=== PATIENT | male | born 1935 | race Caucasian/White ===

== ENCOUNTER 2016-11-14 20:28 | Inpatient (IN) | payer OTHER ==
[~2016-11-14] VITALS: Ht 180.3 cm; Wt 103.0 kg
--- NOTE | ~2016-11-14 | 2DMMODE ---
[facility] [address] [place] [address] 2 D/M-MODE ECHOCARDIOGRAM Name: ANA COOL Room #: 314-P [facility] IN ..#: [id number] Admission: 11/15/16 Attend Phys: Jones Lema Discharge: Date of : 33 Date of Service: 11/15/16 1145 Report #: [id number] THIS REPORT FOR: //name// APPROVED REPORT Study performed: 11/15/2016 10:22:10 EXAM: Comprehensive 2D, Doppler, and color-flow Echocardiogram Patient Location: Bedside Blood Pressure: 137/83 mmHg HR: 75 bpm Other Information Study Quality: Adequate Indications Diabetes CAD Hypertension/HDD 2D Dimensions RVDd: 35.63 mm LVEF(%): 65.08 (>50%) IVSd: 13.40 (7-11mm) LVOT Diam: 23.81 (18-24mm) LVDd: 49.13 mm PWd: 12.51 (7-11mm) Ascending Aorta: 32.53 mm LVDs: 31.57 (25-40mm) Aortic Root: 36.94 mm Tellez's LVEF: 65.08 % Volumes Left Atrial Volume (Systole) Single Plane 4CH: 59.72 mL Single Plane 2CH: 59.55 mL Aortic Valve AoV Peak Andrey.: 1.27 m/s AO Peak Gr.: 6.44 mmHg LV Max P.26 mmHg LV Max: 1.03 m/s Mitral Valve MV PHT: 75.39 ms MV E Max Andrey.: 1.17 m/s E/A Ratio: 0.9 [facility] [address] [place] [address] 2 D/M-MODE ECHOCARDIOGRAM Name: ANA COOL Room #: 314-P [facility] IN ..#: [id number] Admission: 11/15/16 Attend Phys: Jones Lema Discharge: Date of : 33 Date of Service: 11/15/16 1145 Report #: [id number] A Anrdey.: 1.30 m/s MV Decel. Time: 259.98 ms Pulmonary Valve PV Peak Andrey.: 1.04 m/s PV Peak Gr.: 4.31 mmHg Tricuspid Valve TR Peak Andrey.: 3.05 m/s TR Peak Gr.: 37.30 mmHg Left Ventricle The left ventricle is normal size. There is normal LV segmental wall motion. Mild concentric left ventricular hypertrophy. The left ventricular systolic function is normal. The left ventricular ejection fraction is within the normal range. LVEF is 60-65%. Left ventricular filling pattern is normal for age. Right Ventricle The right ventricle is normal size. The right ventricular systolic function is normal. Atria The left atrium size is normal. Right atrium is mildly dilated. Aortic Valve The aortic valve is normal in structure. No aortic regurgitation is present. There is no aortic valvular stenosis. Mitral Valve The mitral valve is normal in structure. Moderate mitral regurgitation. Tricuspid Valve The tricuspid valve is normal in structure. There is mild tricuspid regurgitation. There is mild pulmonary hypertension. The estimated PAP was 37 mmHg plus the right atrial pressure. Pulmonic Valve The pulmonary valve is normal in structure. There is no pulmonic valvular regurgitation. Great Vessels The aortic root is normal in size. IVC is not well visualized. Pericardium [facility] [place] [address] 2 D/M-MODE ECHOCARDIOGRAM Name: ANA COOL Room #: 314-P ADM IN M.R.#: [id number] Admission: 11/15/16 Attend Phys: Jones Lema Discharge: Date of : 33 Date of Service: 11/15/16 1145 Report #: [id number] There is no pericardial effusion. <Conclusion> The left ventricle is normal size. LVEF is 60-65%. Right atrium is mildly dilated. The aortic valve is normal in structure. The mitral valve is normal in structure. Moderate mitral regurgitation. There is mild tricuspid regurgitation. There is mild pulmonary hypertension. The estimated PAP was 37 mmHg plus the right atrial pressure. <ELECTRONICALLY SIGNED> By: Fabricio Hammer MD 11/15/16 1145 1145 1145 Fabricio Hammer MD /INF
--- NOTE | ~2016-11-14 | EKG ---
[address] [place] [address] ELECTROCARDIOGRAM REPORT Name: ANA Woodward Room #: 314-P [facility] M.R.#: [id number] Admission: 11/14/16 Attend Phys: Jones Ricketts Discharge: Date of : 33 Report #: [id number] THIS REPORT FOR: //name// [facility] ED Test Date: 2016-11-14 Test Time: 20:47:45 Pat Name: ANA COOL Department: Room: [facility] Gender: M Hat Steamer: CHRIS : 1935 Requested By: Laura Chua Order Number: [id number] MD: Valdemar Momin Measurements Intervals [place] Rate: 104 P: NV: QRS: -78 QRSD: 106 T: 88 QT: 341 QTc: 449 Interpretive Statements Atrial fibrillation Abnormal R-wave progression, early transition Inferior infarct, old Nonspecific ST and T wave abnormality No previous ECG available for comparison Electronically Signed On 11-15-2016 9:36:53 CDT by Valdemar Momin [email or web address] <ELECTRONICALLY SIGNED> By: Valdemar Momin MD, [facility] 11/15/16 0936 2047 46 Valdemar Momin MD, FACC /EPI
--- NOTE | ~2016-11-14 | H ---
[facility] [place] [address] HISTORY AND PHYSICAL Name: ANA COOL Room #: 314-P ADM IN M.R.#: [id number] Admission: 11/15/16 Attend Phys: Jones Ricketts Discharge: Date of : 33 Report #: [id number] THIS REPORT FOR: //name// CC: FAM unknown Jones Ricketts DATE OF SERVICE: 11/14/2016 ATTENDING PHYSICIAN: Dr. Randy Pina. PRIMARY CARE PHYSICIAN: Is in [place]. CHIEF COMPLAINT: Fatigued and back pain. HISTORY OF PRESENT ILLNESS: The patient is an 81-year-old male who has been living in [place] for many years. Apparently, his ex- has been here [place] with disease and just yesterday. He has scheduled for her today. He just kate here with his son, he says they kate straight through up to 19 hours and he never really got out to stretch at his legs. He does have a history of DVT but is not on any further anticoagulation. Overall he is feeling very fatigued and experiencing some back pain. He also had diminished appetite, but denied any nausea or vomiting. He had a fever today up to 101.7 and he was brought into the ER to be evaluated. He has been having some associated chills. In the ER, he was diagnosed with pneumonia and admitted for IV antibiotics. The patient is adamant that he gets out today and time to get to his ex-'s . He is denying any cough or congestion. Denies any ill contacts. PAST MEDICAL HISTORY: Hypertension, CVA, coronary artery disease, noninsulin dependent diabetes, obstructive sleep apnea, seizure disorder, chronic back pain, DVT, chronic kidney disease stage 3, gastritis with prior GI bleed, peripheral neuropathy. PAST SURGICAL HISTORY: Right knee and left knee scopes followed by a left total knee replacement, CABG x 3 vessels in 2002, and coronary stent. ALLERGIES: PENICILLIN, unknown reaction. HOME MEDICATIONS: The patient states he takes multiple medications including blood pressure medicines, seizure medicine, but he does not have this medications on him or have an accurate list. SOCIAL HISTORY: The patient currently lives in [place]. His ex- had been living [place] years and has just . He normally ambulates with a cane. Denies any alcohol or tobacco use. [address] [address] HISTORY AND PHYSICAL Name: ANA Crissy Room #: 314-P [facility] IN M.R.#: [id number] Admission: 11/15/16 Attend Phys: Jones iRcketts Discharge: Date of : 33 Report #: [id number] FAMILY HISTORY: Noncontributory due to advanced age. REVIEW OF SYSTEMS: Twelve point review of systems was reviewed with the patient, otherwise negative unless stated in the HPI. PHYSICAL EXAMINATION: GENERAL: The patient is an alert male in no acute distress. VITAL SIGNS: Temperature is 38.7, heart rate 99, respirations 22, blood pressure is 191/71, oxygen 97% on room air. HEENT: PERRLA. Sclerae are nonicteric. Oral mucosa is pink and dry. Lips are chapped. NECK: Supple, no JVD noted. CARDIOVASCULAR: Normal S1, S2. No murmurs, rubs or gallops. RESPIRATORY: Breath sounds are clear bilaterally. He is diminished in the right lower lobe. Breathing is nonlabored. ABDOMEN: Round, soft, nontender, nondistended with positive bowel sounds. VASCULAR: He does have 1+ edema bilateral lower extremities. There is some venous stasis discoloration of both lower extremities. There is some mild erythema and warmth circumferentially above both ankles this area is somewhat tender. He really does not have any calf tenderness, pedal pulses are 1+. Feet are warm. NEUROLOGIC: The patient is alert and oriented x 3. Speech is clear. He is answering answers questions appropriately and is following commands. No focal weakness noted. LABORATORY DATA AND DIAGNOSTIC: WBC is 30.3, hemoglobin is 12.5, platelets 240. Sodium is 136, potassium 3.8, BUN 44, creatinine 1.8, glucose 230. Liver enzymes are within normal limits. Troponin is negative. BNP 2144. UA showed trace blood, otherwise negative. Chest x-ray showed a left lower lobe infiltrate with small left pleural effusions and cardiomegaly with mild vascular congestion. ASSESSMENT AND PLAN: 1. Pneumonia. This will be considered community acquired. We will continue with Levaquin because he does have significant leukocytosis. We will add vancomycin, follow blood cultures, check urine for Legionella and Strep. Add breathing treatments and mucolytics. 2. Bilateral lower extremity cellulitis. Follow blood cultures. Continue with vancomycin. We will check venous Doppler's to rule out DVT as he does have a history of DVT and has had a recent travel. 3. Diabetes type 2. Blood sugar is elevated. We will add sliding scale insulin and check blood sugars a.c. and h.s., we do need to clarify his home oral hypoglycemics, he said he is not on any insulin at home. 4. Hypertension. Blood pressure is elevated. We will try to clarify his home medications and resume. 5. History of coronary artery disease. The patient denies any current chest [facility] [address] [place] [address] HISTORY AND PHYSICAL Name: ANA COOL Room #: 314-P ADM IN .R.#: [id number] Admission: 11/15/16 Attend Phys: Jones Ricketts Discharge: Date of : 33 Report #: [id number] pain and EKG shows no ischemic changes. 6. Seizure disorder. He was able to tell us that he is on Dilantin which we will continue. 7. Chronic kidney disease stage III?. We do not have any previous labs, but the patient does believe he has had some kidney problems in the past. So, we really do not know the baseline creatinine. He is receiving IV fluids and we will follow labs. 8. Deep venous thrombosis prophylaxis, start Lovenox. We will continue to follow the patient closely throughout the hospitalization and make changes based on clinical status. <ELECTRONICALLY SIGNED> By: SADIE Amaral 11/19/16 0608 0704 09 SADIE Amaral /angela
--- NOTE | ~2016-11-14 | HC ---
[facility] [place] [address] CONSULTATION Name: ANA COOL Room #: 314-P [facility] IN M.R.#: [id number] Admission: 11/15/16 Attend Phys: Jones Ricketts Discharge: Date of : 33 Report #: [id number] THIS REPORT FOR: //name// CC: FAM unknown Jones Ricketts REASON FOR CONSULTATION: Elevated troponin. HISTORY OF PRESENT ILLNESS: The patient is an 81-year-old gentleman who lives in [place], [place]. He is here following his 's and . He has been here about a week. Last , he developed generalized fatigue and chills. He presented to the emergency department last night with decreased appetite, malaise and nonproductive cough. He was seen in the emergency department where he was febrile at 38.7 degrees. Hemodynamics were stable. In this setting, a troponin was ordered and elevated at 1.75. I was asked to see him in this regard. He denies chest heaviness, pressure or ischemic type symptoms. He says that, maybe under really heavy levels of physical exertion, he develops a midsternal chest tightness that is relieved by rest. He is followed very closely by a pump house engineer in [place] who performed a nuclear stress study, he thinks, about a year ago and was told that everything was "okay." He denies a prior history of myocardial infarction. He denies heart failure symptoms including orthopnea, paroxysmal nocturnal dyspnea or lower extremity edema. No history of palpitations, near syncope or syncope. MEDICINES: He does not have a list with him, include Topamax and Dilantin. ALLERGIES: PENICILLIN. PAST MEDICAL HISTORY: Notable for hypertension, prior stroke in 2000, angioplasty to the LAD in 1992 followed by multivessel bypass surgery by Dr. Ana Vera in 07/2002, bilateral knee replacements, chronic low back pain, sleep apnea on CPAP, diabetes. SOCIAL HISTORY: He is a nonsmoker, retired salesman. FAMILY HISTORY: Unremarkable for premature coronary disease. REVIEW OF SYSTEMS: All systems negative except as that noted above. PHYSICAL EXAMINATION: GENERAL: He is a pleasant gentleman in no distress. VITAL SIGNS: Blood pressure is 150/60, heart rate of 70 and regular, temperature is 100.1 degrees, 5 feet 11 inches tall, 227 pounds. HEENT: There is neither xanthelasma, subcutaneous xanthomata, oral mucosal or digital cyanosis or kyphoscoliosis present. CHEST: Reveals diminished breath sounds at both bases. CARDIAC: Reveals regular rate and rhythm with normal S1, S2. No murmurs or [facility] [address] [place] [address] CONSULTATION Name: ANA COOL Room #: 314-P [facility] IN M.R.#: [id number] Admission: 11/15/16 Attend Phys: Jones Ricketts Discharge: Date of : 34 Report #: [id number] rubs. Jugular venous pressure is not elevated. ABDOMEN: Soft and nontender. EXTREMITIES: With trace edema. Radial pulses are 2+. NEUROLOGIC: He is alert with a nonfocal exam. LABORATORY DATA: EKG: Sinus rhythm with early R-wave progression, probable prior inferior infarct. Sodium 140, potassium 3.4, creatinine 1.7. Troponin 1.75, BNP 9359. White count 15.7, hemoglobin 10, hematocrit 31, platelet count 200, normal thyroid function studies. Venous Dopplers were negative for deep venous thrombosis. RADIOLOGICAL DATA: Chest x-ray demonstrates left lower lobe infiltrate, mild pulmonary vascular redistribution. IMPRESSION: 1. Community-acquired pneumonia. 2. Non-Q-wave myocardial infarction, likely related to supply demand mismatch in the setting of fevers and pneumonia. 3. Hypertension. 4. Diabetes. 5. Dyslipidemia. 6. Chronic kidney disease. 7. Seizure disorder. 8. Prior stroke. RECOMMENDATIONS: Beta-blockade, aspirin therapy. I would recommend pharmacologic therapy for this type 2 non-Q-wave infarct, especially in the absence of symptoms. He does report that he will have very close followup with his physicians in [place], at some point, depending on when his last stress test was, consider reassessing ischemic burden. Thank you for asking me to participate in the patient's care. <ELECTRONICALLY SIGNED> By: Valdemar Momin MD, FACC 11/18/16 0825 [id number] Valdemar Momin MD, FACC /nt
[2016-11-14 20:29] VITALS: BP 157/72
[2016-11-14 20:53] LABS: URINE BILIRUBIN NEGATIVE (Negative); URINE BLOOD TRACE (Negative); URINE COLOR YELLOW; URINE GLUCOSE-RANDOM* NEGATIVE (Negative); URINE KETONES NEGATIVE (Negative); URINE LEUKOCYTES-REFLEX NEGATIVE (Negative); URINE PROTEIN (DIPSTICK) NEGATIVE (Negative); URINE UROBILINOGEN 0.2 E.U./dl (0.2-1.0)
[2016-11-14 21:51] LABS: HEMATOCRIT 33.1 % (42.0-52.0); HEMOGLOBIN 12.5 gm/dL (14.0-18.0); MCH 38.6 pg (26.0-34.0); MCHC 37.8 g/dL (28.0-37.0); MCV 102.1 fL (80.0-100.0); PLATELET COUNT 240 thou/uL (150-400); RBC 3.24 mil/uL (4.50-6.00); RDW 14.1 % (10.5-14.5); WBC 30.3 thou/uL (4.0-11.0)
[2016-11-14 21:52] LABS: MANUAL DIFF YES
[2016-11-14 22:22] LABS: ABSOLUTE NEUTROPHILS 27.6 thou/uL (1.4-8.2); TOTAL CELL COUNT 100
[2016-11-14 22:23] LABS: ANISOCYTOSIS 1+; MACROCYTES 1+; POLYCHROMASIA OCCASIONAL
[2016-11-14 22:27] LABS: ANION GAP 11 mmol/L (7-16); BUN 44 mg/dL (7-18); CALCIUM 8.3 mg/dL (8.5-10.1); CHLORIDE 103 mmol/L (98-107); CO2 22 mmol/L (21-32); CREATININE 1.8 mg/dL (0.7-1.3); GLUCOSE 230 mg/dL (74-106); POTASSIUM 3.8 mmol/L (3.5-5.1); SODIUM 136 mmol/L (136-145)
[2016-11-14 22:38] LABS: ALBUMIN 3.3 g/dL (3.4-5.0); ALKALINE PHOSPHATASE 94 U/L (46-116); NT-PRO BRAIN NAT PEPTIDE 2144 pg/mL (<300); SGOT 27 U/L (15-37); SGPT 29 U/L (30-65); TOTAL BILIRUBIN 0.4 mg/dL (<0.1-1.0); TOTAL PROTEIN 6.9 g/dL (6.4-8.2); TROPONIN-I < 0.04 ng/mL (<0.04-0.07)
[2016-11-14 22:45] VITALS: BP 147/60
[2016-11-14 23:05] VITALS: BP 145/60
[2016-11-14] MEDS ORDERED: TOPAMAX50 MG PO (23:43)
[2016-11-14] MEDS ORDERED: DILANTIN100 MG PO (23:45)
[2016-11-15 08:42] LABS: HEMATOCRIT 32.2 % (42.0-52.0); HEMOGLOBIN 10.8 gm/dL (14.0-18.0); MCH 30.6 pg (26.0-34.0); MCHC 33.6 g/dL (28.0-37.0); PLATELET COUNT 206 thou/uL (150-400); RBC 3.53 mil/uL (4.50-6.00); RDW 13.7 % (10.5-14.5)
[2016-11-15 08:49] LABS: ANION GAP 11 mmol/L (7-16); BUN 43 mg/dL (7-18); CALCIUM 7.6 mg/dL (8.5-10.1); CHLORIDE 105 mmol/L (98-107); CO2 22 mmol/L (21-32); CREATININE 1.8 mg/dL (0.7-1.3); GLUCOSE 203 mg/dL (74-106); POTASSIUM 3.7 mmol/L (3.5-5.1); SODIUM 138 mmol/L (136-145)
[2016-11-15 08:50] VITALS: BP 137/83
[2016-11-15 08:53] LABS: MANUAL DIFF YES; MCV 91.1 fL (80.0-100.0)
[2016-11-15 09:14] LABS: PLATELET ESTIMATE NORMAL; TOTAL CELL COUNT 100
[2016-11-15 09:58] LABS: CHOLESTEROL 166 mg/dL (<200); HDL CHOLESTEROL 45 mg/dL (>40); LDL CHOLESTEROL 107 mg/dL (<100); NT-PRO BRAIN NAT PEPTIDE 9359 pg/mL (<300); TC:HDL 3.7 Ratio (Not establshd); TRIGLYCERIDE 71 mg/dL (<150); VLDL 14 mg/dL (<40)
[2016-11-15] MEDS ORDERED: LASIX 20 MG TAB20 MG PO (10:21)
[2016-11-15] MEDS ORDERED: CELEXA10 MG PO (10:24)
[2016-11-15] MEDS ORDERED: KEPPRA 500 MG500 M1 PO (10:24)
[2016-11-15] MEDS ORDERED: TOPAMAX200 MG PO (10:25)
[2016-11-15] MEDS ORDERED: HYDROCHLOROTHIA25 M2 PO (10:27)
[2016-11-15] MEDS ORDERED: MAXIMUM DAILY1 EACH (10:28)
[2016-11-15] MEDS ORDERED: CALCIUM 500 +1 EAC5 (10:30)
[2016-11-15] MEDS ORDERED: AMLODIPINE BESY10 MG PO (10:30)
[2016-11-15] MEDS ORDERED: VITAMINC500 PO (10:31)
[2016-11-15] MEDS ORDERED: ASPIR 8181 MG PO (10:31)
[2016-11-15] MEDS ORDERED: LISINOPRIL20 MG PO (10:32)
[2016-11-15] MEDS ORDERED: IRON325 PO (10:32)
[2016-11-15] MEDS ORDERED: GLIPIZIDE 10 MG10 MG PO (10:33)
[2016-11-15] MEDS ORDERED: PRILOSEC OTC20 MG PO (10:34)
[2016-11-15 15:42] VITALS: BP 136/59
[2016-11-15 20:28] VITALS: BP 141/42
[2016-11-16 00:25] VITALS: BP 140/67
[2016-11-16 04:38] VITALS: BP 146/61
[2016-11-16 05:17] LABS: HEMATOCRIT 31.5 % (42.0-52.0); HEMOGLOBIN 10.8 gm/dL (14.0-18.0); MCH 31.3 pg (26.0-34.0); MCHC 34.3 g/dL (28.0-37.0); MCV 91.1 fL (80.0-100.0); RBC 3.46 mil/uL (4.50-6.00); RDW 13.8 % (10.5-14.5); WBC 15.7 thou/uL (4.0-11.0)
[2016-11-16 05:38] LABS: ALBUMIN 2.5 g/dL (3.4-5.0); CALCIUM 8.1 mg/dL (8.5-10.1); CREATININE 1.7 mg/dL (0.7-1.3); POTASSIUM 3.4 mmol/L (3.5-5.1); TOTAL BILIRUBIN 0.4 mg/dL (<0.1-1.0); TOTAL PROTEIN 6.1 g/dL (6.4-8.2)
[2016-11-16 05:46] LABS: TROPONIN-I 1.75 ng/mL (<0.04-0.07)
[2016-11-16 07:47] VITALS: BP 156/66
[2016-11-16 15:28] VITALS: BP 141/50
[2016-11-16 19:40] VITALS: BP 159/61
[2016-11-17 03:45] VITALS: BP 169/71
[2016-11-17 05:09] LABS: ALBUMIN 2.6 g/dL (3.4-5.0); CALCIUM 8.5 mg/dL (8.5-10.1); CREATININE 1.4 mg/dL (0.7-1.3); PHOSPHORUS 3.3 mg/dL (2.5-4.9); POTASSIUM 3.7 mmol/L (3.5-5.1)
[2016-11-17 05:15] LABS: TROPONIN-I 0.83 ng/mL (<0.04-0.07)
[2016-11-17 08:56] VITALS: BP 176/66
[2016-11-17 16:28] VITALS: BP 159/90
[2016-11-17 20:11] VITALS: BP 153/90
[2016-11-18 04:28] VITALS: BP 160/61
[2016-11-18 06:20] LABS: ABSOLUTE NEUTROPHILS 7.2 thou/uL (1.4-8.2); BASOPHILS 0.5 % (0.0-2.0); EOSINOPHILS 4.2 % (0.0-3.0); HEMATOCRIT 35.8 % (42.0-52.0); HEMOGLOBIN 12.2 gm/dL (14.0-18.0); LYMPHOCYTES 17.7 % (24.0-44.0); MCH 32.3 pg (26.0-34.0); MCHC 33.9 g/dL (28.0-37.0); MCV 95.3 fL (80.0-100.0); MONOCYTES 8.7 % (1.0-8.0); PLATELET COUNT 265 thou/uL (150-400); POLYS 68.9 % (36.0-66.0); RBC 3.76 mil/uL (4.50-6.00); RDW 13.9 % (10.5-14.5); WBC 10.5 thou/uL (4.0-11.0)
[2016-11-18 06:24] LABS: MANUAL DIFF NO
[2016-11-18 06:41] LABS: ALBUMIN 2.8 g/dL (3.4-5.0); CALCIUM 8.5 mg/dL (8.5-10.1); CREATININE 1.4 mg/dL (0.7-1.3); PHOSPHORUS 3.8 mg/dL (2.5-4.9); POTASSIUM 4.4 mmol/L (3.5-5.1); TROPONIN-I 0.41 ng/mL (<0.04-0.07)
[2016-11-18 16:50] VITALS: BP 148/65
[2016-11-18 20:00] VITALS: BP 157/65
[2016-11-19 04:00] VITALS: BP 158/68
[2016-11-19 05:46] LABS: ALBUMIN 2.6 g/dL (3.4-5.0); CALCIUM 8.4 mg/dL (8.5-10.1); CREATININE 1.5 mg/dL (0.7-1.3); PHOSPHORUS 3.6 mg/dL (2.5-4.9); POTASSIUM 4.2 mmol/L (3.5-5.1)
[2016-11-19 07:58] VITALS: BP 172/62
[2016-11-19] MEDS ORDERED: LEVAQUIN 750 M750 MG PO (09:53)
[2016-11-19] MEDS ORDERED: LIPITOR 20 MG T20 M1 PO (09:54)
[2016-11-19] MEDS ORDERED: CLOPIDOGREL75 MG PO (09:54)
[2016-11-19] MEDS ORDERED: CARVEDILOL6.25 MG PO (09:54)
[2016-11-19 10:13] VITALS: BP 172/62
== END 2016-11-19 11:35 | disposition home or self-care (01) | DRG 871 ==
LOC: ER 20:28 → 3N 22:34 → EROBS 22:34 → 3N 22:50
PROVIDERS: Emergency Medicine; Hospitalist; Nurse Practitioner Acute Care
DX: A41.9 Sepsis, unspecified organism (principal); I21.4 Non-ST elevation (NSTEMI) myocardial infarction; J18.9 Pneumonia, unspecified organism; L03.116 Cellulitis of left lower limb; L03.115 Cellulitis of right lower limb; I50.30 Unspecified diastolic (congestive) heart failure; I13.0 Hypertensive heart and chronic kidney disease with heart failure and stage 1 through stage 4 chronic kidney disease, or unspecified chronic kidney disease; E66.9 Obesity, unspecified; Z96.652 Presence of left artificial knee joint; G89.29 Other chronic pain; M54.5 Low back pain; G40.909 Epilepsy, unspecified, not intractable, without status epilepticus; Z88.0 Allergy status to penicillin; I25.10 Atherosclerotic heart disease of native coronary artery without angina pectoris; Z86.718 Personal history of other venous thrombosis and embolism; N18.3 Chronic kidney disease, stage 3 (moderate); G47.33 Obstructive sleep apnea (adult) (pediatric); E11.22 Type 2 diabetes mellitus with diabetic chronic kidney disease; E11.42 Type 2 diabetes mellitus with diabetic polyneuropathy; E78.5 Hyperlipidemia, unspecified; Z68.31 Body mass index [BMI] 31.0-31.9, adult; Z95.5 Presence of coronary angioplasty implant and graft; Z86.73 Personal history of transient ischemic attack (TIA), and cerebral infarction without residual deficits; Z95.1 Presence of aortocoronary bypass graft
CPT/HCPCS: 10096